=== PATIENT | female | born 1985 | race African-American/Black ===

== ENCOUNTER 2018-08-30 13:38 | Emergency (ER) | payer MEDICAID, OTHER ==
[~2018-08-30] VITALS: Ht 154.9 cm; Wt 114.0 kg
[~2018-08-30 13:38] MED LIST: ACET325T14 PO; TRAM50TA2 PO
[2018-08-30 14:50] LABS: ALANINE AMINOTRANSFERASE 26 U/L (12-78); ANION GAP 7 mmol/L (5-15); BASOPHILS # (AUTO) 0.03 x10^3/uL (0-0.1); BASOPHILS % (AUTO) 0 % (0-1); CALCIUM 8.4 mg/dL (8.5-10.1); CHLORIDE 105 mmol/L (98-107); CREATININE 0.92 mg/dL (0.55-1.02); EOSINOPHILS # (AUTO) 0.12 x10^3/uL (0-0.4); EOSINOPHILS % (AUTO) 2 % (1-7); LYMPHOCYTES # (AUTO) 2.95 x10^3/uL (1-3.4); LYMPHOCYTES % (AUTO) 44 % (22-44); MD NO; MEAN CORPUSCULAR HEMOGLOBIN 33.3 pg (27.0-34.8); MEAN CORPUSCULAR HGB CONC 33.7 g/dL (32.4-35.8); MEAN CORPUSCULAR VOLUME 98.8 fL (80-100); MEAN PLATELET VOLUME 8.3 fL (7.4-10.4); MONOCYTES # (AUTO) 0.42 x10^3/uL (0.2-0.8); MONOCYTES % (AUTO) 6 % (2-9); NEUTROPHILS # (AUTO) 3.18 x10^3/uL (1.8-6.8); NEUTROPHILS % (AUTO) 48 % (42-75); PLATELET COUNT 319 x10^3/uL (130-400); RED BLOOD COUNT 3.99 x10^6/uL (3.82-5.3); RED CELL DISTRIBUTION WIDTH 13.1 % (9.6-15.2)
[2018-08-30 14:55] LABS: ALKALINE PHOSPHATASE 68 U/L (45-117); BILIRUBIN,TOTAL 0.4 mg/dL (0.2-1.0); TOTAL PROTEIN 7.7 g/dL (6.4-8.2); TROPONIN I < 0.015 ng/mL (0.000-0.045)
--- NOTE | 2018-08-30 15:46 | NUR ---
PT TO ROOM FROM LOBBY AT THIS TIME.
--- NOTE | 2018-08-30 16:08 | NUR ---
PT PRESENTS TO ED FOR R SIDED FERNANDEZ(MIGRAINE) AND CHEST PAIN. SYMTPOMS PRESENT FOR 2 DAYS. PT STATES SHE IS FROM OUT OF TOWN ([place], [place]) AND ARRIVED 2 DAYS AGO. PT RESTING ON GURNEY. STATES HERE PAIN HAS LESSENED SINCE ARRIVAL TO ED. ALL CONCERNS ADRESSED. AWAITING FRTHER ORDERS.
[2018-08-30] MEDS ORDERED: KETOROLAC 30 MG/1 ML IM ONE (16:30)
[2018-08-30] MEDS ORDERED: METOCLOPRAMIDE 10MG TABLET PO ONE (16:30)
[2018-08-30] MEDS ORDERED: DIPHENHYDRAMINE 25 MG CAPSULE PO ONE (16:30)
[2018-08-30] MEDS ORDERED: KETOROLAC 30 MG/1 ML ONE ×2 (16:54→17:15)
[2018-08-30] MEDS ORDERED: METOCLOPRAMIDE 10MG TABLET ONE (16:54)
[2018-08-30] MEDS ORDERED: DIPHENHYDRAMINE 25 MG CAPSULE ONE (16:55)
--- NOTE | 2018-08-30 17:07 | NUR ---
REFUSING BENADRYL AND REGLAN AT THIS TIME.
[2018-08-30 17:08] VITALS: BP 129/78
[2018-08-30] MEDS ORDERED: METOCLOPRAMIDE 5 MG/ML, 2ML ONE (17:15)
[2018-08-30] MEDS ORDERED: DIPHENHYDRAMINE 50 MG/ML, 1ML ONE (17:15)
--- NOTE | 2018-08-30 18:07 | NUR ---
MD SPOKE WITH PT REGARDING DC INSTRUCTIONS. PT LEFT WITHOUT RECIEVING DC PAPERWORK OR EDUCATION FROM THIS RN. PT LEFT WITH ALL PERSONAL BELONGINGS.
== END 2018-08-30 18:16 | disposition home or self-care (01) ==
LOC: ED 17:30
DX: G43.019 Migraine without aura, intractable, without status migrainosus (principal); R42 Dizziness and giddiness; R07.9 Chest pain, unspecified; I10 Essential (primary) hypertension; F17.200 Nicotine dependence, unspecified, uncomplicated
CPT/HCPCS: 36415; 71045; 80053; 84484; 85025; 93005; 96372; 99284; J1885